=== PATIENT | female | born 1950 | race Two or more races ===

== ENCOUNTER 2018-02-27 08:10 | Day surgery (SDC) | payer MEDICARE, BC ==
[2018-02-25 15:25] VITALS: BMI 30.2
[~2018-02-27 08:10] MED LIST: LACTATED RINGERS 1,000 ML IV SCH; LIDOCAINE 1% 20 ML VIAL (10MG/ML) FOR IV START INTRADERMA PRN; MIDAZOLAM 2 MG/2 ML VIAL IV PRN
[2018-02-27 08:47] VITALS: TEMP 97.8
--- NOTE | 2018-02-27 08:57 | P.GSHP ---
History of Present Illness H&P Date: 02/27/18 Chief Complaint: GERD This is a 68-year-old female referred from Dr. Darling. Patient presents today for EGD. She's had issues with GERD. Past Medical History Past Medical History: GERD/Reflux Additional Past Medical History / Comment(s): SOME SHORT TERM MEMORY LOSS, History of Any Multi-Drug Resistant Organisms: None Reported Past Surgical History: Cholecystectomy, Hernia Repair Past Anesthesia/Blood Transfusion Reactions: No Reported Reaction Smoking Status: Never smoker - Past Family History Father Family Medical History: Cancer Mother Family Medical History: Cancer Medications and Allergies Home Medications Medication Instructions Recorded Confirmed Type Montelukast [Singulair] 10 mg PO HS 02/25/18 02/25/18 History Ranitidine HCl [Zantac] 150 mg PO BID 02/25/18 02/25/18 History Allergies Allergy/AdvReac Type Severity Reaction Status Date / Time No Known Allergies Allergy Verified 02/27/18 08:41 Surgical - Exam Vital Signs Temp Pulse Resp BP Pulse Ox 97.8 F 84 16 141/78 97 02/27/18 08:44 02/27/18 08:44 02/27/18 08:44 02/27/18 08:44 02/27/18 08:44 - General well developed, no distress - Eyes PERRL - ENT normal pinna - Neck no masses - Respiratory normal expansion - Cardiovascular Rhythm: regular - Abdomen Abdomen: soft, non tender Assessment and Plan Assessment: GERD. We'll perform EGD.
[2018-02-27] MEDS ORDERED: PROPOFOL 10 MG/ML 20 ML VIAL IV ONE (08:59)
--- NOTE | 2018-02-27 09:13 | P.OP ---
Date of Procedure: 02/27/18 Preoperative Diagnosis: GERD Postoperative Diagnosis: Antral gastritis Procedure(s) Performed: EGD Anesthesia: MAC Surgeon: Reynold Paez Pathology: other (Antrum) Condition: stable Disposition: PACU Description of Procedure: The patient's placed on the endoscopy table in the lateral position. She received IV sedation. The gastroscope placed oropharynx and passed in the esophagus into the stomach. Scope was then placed through the pylorus. The first and second portion of the duodenum. Normal. Scope was then brought back the antrum and this was mildly inflamed. A biopsies performed. The scope was then retroflexed and the remainder of the stomach appeared normal. There is no significant hiatal hernia. The GE junction was at 40 cm. The distal esophagus appeared normal. The proximal esophagus appeared Normal. Scope was withdrawn for patient.
[2018-02-27 09:58] VITALS: BP 125/77; PULSE 71; RESP 16
== END 2018-02-27 10:04 | disposition home or self-care (01) ==
LOC: ORWHC2ENDO 08:10
PROVIDERS: ATTEND Surgery
DX: K29.50 Unspecified chronic gastritis without bleeding (principal); K21.9 Gastro-esophageal reflux disease without esophagitis; J45.909 Unspecified asthma, uncomplicated; R41.3 Other amnesia; Z79.899 Other long term (current) drug therapy
CPT/HCPCS: 88305; 43239; J2704